=== PATIENT | female | born 2000 | race Caucasian/White ===

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

== ENCOUNTER 2021-08-20 05:55 | Emergency (ER) | payer OTHER ==
[~2021-08-20] VITALS: Ht 157.5 cm; Wt 67.3 kg
[2021-08-20] MEDS ORDERED: ZOLO100T (06:04)
[2021-08-20] MEDS ORDERED: HYDR1SOL (06:04)
[2021-08-20] MEDS ORDERED: NS 1,000 ML IV ONE (08:45)
[2021-08-20] MEDS ORDERED: dexameTHASONE 20MG/5ML VIAL (J1100 PER 1MG) IV ONE (08:45)
[2021-08-20 10:01] VITALS: BP 116/66
[2021-08-20] MEDS ORDERED: KETOROLAC 30 MG/ML 1ML VIAL IV ONE (10:25)
== END 2021-08-20 11:07 | disposition home or self-care (01) ==
LOC: M ED 05:55
DX: G89.18 Other acute postprocedural pain (principal); Z79.899 Other long term (current) drug therapy
CPT/HCPCS: 84702; 96361; 96374; 96375; 99283; J1100; J1885

== ENCOUNTER → 2021-10-24 | Outpatient (REF) | payer OTHER ==
[~2021-10-24] MED LIST changes: +HYDR1SOL; +ZOLO100T
[2021-10-24 12:02] LABS: BASO % 0.3 % (0.0-1.0); EOS # 0.2 10^3/uL (0.0-0.5); EOS % 5.2 % (0.0-3.0); HEMATOCRIT 42.1 % (36.0-47.0); HEMOGLOBIN 14.4 g/dl (12.0-15.5); LYMPH # 1.2 10^3/uL (1.5-5.0); LYMPH % 34.6 % (24.0-44.0); MEAN CORPUSCULAR HEMOGLOBIN 30.3 pg (27.0-33.0); MEAN CORPUSCULAR HGB CONC 34.2 g/dl (32.0-36.5); MEAN CORPUSCULAR VOLUME 88.6 fl (80.0-96.0); MONO # 0.3 10^3/uL (0.0-0.8); MONO % 8.1 % (2.0-8.0); NEUTROPHILS # 1.8 10^3/uL (1.5-8.5); NEUTROPHILS % 51.5 % (36.0-66.0); PLATELET COUNT, AUTOMATED 293 10^3/uL (150-450); RED BLOOD COUNT 4.75 10^6/uL (4.00-5.40); WHITE BLOOD COUNT 3.4 10^3/uL (4.0-10.0)
[2021-10-24 12:31] LABS: TOTAL PROTEIN,RANDOM URINE 18.6 MG/DL (0.0-12.0)
[2021-10-24 12:41] LABS: DRVV SCREEN 33.4 SEC
[2021-10-24 12:43] LABS: TOTAL 25(OH) VITAMIN D 15.9 NG/ML (30.0-100.0)
[2021-10-24 12:46] LABS: PTT LUPUS TYPE ANTICOAG SCREEN 0.9 (0-1.2)
[2021-10-24 14:09] LABS: APPEARANCE, URINE HAZY (CLEAR); BACTERIA, URINE AUTO NEGATIVE (NEGATIVE); BILIRUBIN, URINE AUTO NEGATIVE (NEGATIVE); BLOOD, URINE BLOOD 2+ (NEGATIVE); CALCIUM OXALATE CRYSTALS SMALL; COLOR, URINE YELLOW (YELLOW); GLUCOSE, URINE (UA) AUTO NEGATIVE (NEGATIVE); KETONE, URINE AUTO NEGATIVE (NEGATIVE); LEUKOCYTE ESTERASE, URINE AUTO NEGATIVE (NEGATIVE); MUCUS, URINE SMALL (NEGATIVE); NITRITE, URINE AUTO NEGATIVE (NEGATIVE); PROTEIN, URINE AUTO NEGATIVE (NEGATIVE); RBC, URINE AUTO 47 /HPF (0-3); SPECIFIC GRAVITY URINE AUTO 1.014 (1.002-1.035); SQUAMOUS EPITHELIAL CELL UR AU 3 /HPF (0-6); UROBILINOGEN, URINE AUTO 0.2 mg/dL (0.0-2.0); WBC, URINE AUTO 1 /HPF (0-3)
== END ==
LOC: M SFHCRHEU 10:14
PROVIDERS: ATTEND Internal Medicine
DX: R76.8 Other specified abnormal immunological findings in serum (principal)

== ENCOUNTER → 2021-11-21 | Outpatient (REF) | payer OTHER ==
[2021-11-21 17:16] LABS: FREE T3 2.8 PG/ML (2.9-4.5); FREE T4 0.93 NG/DL (0.78-1.33); THYROID STIMULATING HORMONE 1.22 uIU/ML (0.463-3.98)
== END ==
LOC: M SFHCRHEU 15:16
PROVIDERS: ATTEND Internal Medicine
DX: R76.8 Other specified abnormal immunological findings in serum (principal)

== ENCOUNTER → 2021-12-22 | Outpatient (CLI) | payer OTHER ==
[2021-12-22 19:57] LABS: THYROGLOBULIN ANTIBODY 48.5 U/ML (<60.0); TOTAL T3 155.1 NG/DL (86.0-192.0)
== END ==
LOC: M PLALAB 15:22
PROVIDERS: ATTEND Internal Medicine Endocrinology, Diabetes & Metabolism
DX: R94.6 Abnormal results of thyroid function studies (principal)

== ENCOUNTER → 2022-01-08 | Outpatient (CLI) | payer OTHER | LOC: M SLEEP HO 09:51 | PROVIDERS: ATTEND Internal Medicine | DX: R53.82 Chronic fatigue, unspecified (principal) ==